=== PATIENT | female | born 1995 | race Caucasian/White ===

== ENCOUNTER 2018-06-27 09:59 | Day surgery (SDC) | payer BC, OTHER ==
[2018-06-25 16:57] VITALS: Ht 170.2 cm; Wt 77.5 kg
[~2018-06-27] VITALS: Ht 170.2 cm; Wt 77.5 kg
[2018-06-27] VITALS (18 sets, daily range): BP systolic 99–122; BP diastolic 51–70; PULSE 68–102; RESP 14–21
--- NOTE | 2018-06-27 10:53 | PREAC ---
Date/Time of Note Date/Time of Note DATE: 06/27/18 TIME: 10:52 Anesthesia Eval and Record Evaluation Time Pre-Procedure Interview DATE: 06/27/18 TIME: 10:52 Age 22 Sex female NPO: 8 hrs Preoperative diagnosis left thyroid nodule Planned procedure left thyroidectomy Past Medical History Past Medical History: None Surgery & Anesthesia Issues No known issue Meds Anticoagulation: No Beta Carmela within 24 hr: No Reason Beta Carmela not given: Pt. not on B-Carmela Meds reviewed: Yes Allergies Allergies Reviewed: Yes Labs/Studies Labs Reviewed: Reviewed by anesthesiologist test: Negative Pre-procedure Exam Airway: Adequate mouth opening, Adequate thyromental dist Mallampati: Mallampati I Teeth: Normal Lung: Normal Heart: Normal ASA Physical Status ASA physical status: 2 Emergency: None Planned Anesthetic General/MAC: ETT Planned Pain Management Parenteral pain med Pre-operative Attestations Prior to commencing anesthesia and surgery, the patient was re-evaluated, there was verification of: *The patient's identity *The results of appropriate recent lab work and preoperative vital signs *The above evaluation not changing prior to induction *Anesthetic plan, risk benefits, alternative and complications discussed with patient/family; questions answered; patient/family understands, accepts and wishes to proceed. WILDER SEPULVEDA Jun 27, 2018 10:53
--- NOTE | 2018-06-27 10:57 | SIPON ---
Date/Time of Note Date/Time of Note DATE: 06/27/18 TIME: 10:56 Operative Report Preoperative Diagnosis left thyroid nodule Postoperative Diagnosis same Operation/Procedure Performed left hemithyroidectomy Surgeon see signature line instructional support assistant na Anesthesia: general Estimated blood loss: 10 - 50 ml's Transfusion Required none Specimen left thyroid Grafts/Implants none Complications none THU RIVAS MD Jun 27, 2018 10:57
--- NOTE | 2018-06-27 10:58 | HPN ---
Date/Time of Note Date/Time of Note DATE: 06/27/18 TIME: 10:58 Interval H&P Admission Note Pt. seen H&P reviewed: No system changes THU RIVAS MD Jun 27, 2018 10:58
[2018-06-27] MEDS ORDERED: LIDOCAINE 1%/EPI (1:100,000) (MDV) 20 ML ONE (11:05)
[2018-06-27] MEDS ORDERED: PROPOFOL 100 ML ONE (11:17)
[2018-06-27] MEDS ORDERED: DEXAMETHASONE 4 MG/ML 5 ML INJ ONE (11:51)
[2018-06-27] MEDS ORDERED: morphine 10 MG INJ ONE (12:49)
[2018-06-27] MEDS ORDERED: CEFAZOLIN 1 GM INJ ONE (13:50)
[2018-06-27] MEDS ORDERED: ROCURONIUM 50 MG INJ ONE (13:50)
[2018-06-27] MEDS ORDERED: ONDANSETRON 4 MG INJ ONE (13:50)
[2018-06-27] MEDS ORDERED: NEOSTIGMINE 10 MG INJ ONE (13:51)
[2018-06-27] MEDS ORDERED: GLYCOPYRROLATE 0.4 MG INJ ONE (13:51)
--- NOTE | 2018-06-27 14:07 | PAC ---
Date/Time of Note Date/Time of Note DATE: 06/27/18 TIME: 14:07 Post-Anesthesia Notes Post-Anesthesia Note Last documented vital signs Vital Signs Date Temp Pulse Resp B/P (MAP) Pulse Ox O2 O2 Flow FiO2 Time Delivery Rate 06/27/18 98.1 102 18 113/60 100 Room Air 1407 (77) Activity: WNL Respiratory function: WNL Cardiovascular function: WNL Mental status: Baseline Pain reasonably controlled: Yes Hydration appropriate: Yes Nausea/Vomiting absent: Yes WILDER SEPULVEDA Jun 27, 2018 14:07
[2018-06-27] MEDS ORDERED: EPHEDrine SULFATE 50 MG/5 ML SYG IV PRN (14:30)
[2018-06-27] MEDS ORDERED: hydrALAzine 20 MG INJ IV PRN (14:30)
[2018-06-27] MEDS ORDERED: HYDROmorphONE 1 MG/5 ML IV SYRINGE IV PRN ×2 (14:30)
[2018-06-27] MEDS ORDERED: LABETALOL HCL 20MG INJ IV PRN (14:30)
[2018-06-27] MEDS ORDERED: MEPERIDINE 25 MG INJ IV PRN (14:30)
[2018-06-27] MEDS ORDERED: FENTAnyl 50 MCG/ML VIAL IV PRN ×2 (14:30)
[2018-06-27] MEDS ORDERED: ALBUTEROL 0.083% (NEB) 2.5 MG/3 ML AMP HHN PRN (14:30)
[2018-06-27] MEDS ORDERED: KETOROLAC 30 MG INJ IV PRN (14:30)
[2018-06-27] MEDS ORDERED: ONDANSETRON 4 MG INJ IV PRN (14:30)
[2018-06-27] MEDS ORDERED: METOCLOPRAMIDE 10 MG INJ IV PRN (14:30)
[2018-06-27] MEDS ORDERED: DIPHENHYDRAMINE 50 MG INJ IV PRN (14:30)
[2018-06-27] MEDS ORDERED: OXYCODONE/ACETAMINOPHEN (5/325) TAB PO PRN ×2 (14:30)
[2018-06-27] MEDS: FENTAnyl 50 MCG/ML VIAL IV PRN ×2 (15:03→15:12)
[2018-06-27] MEDS: HYDROmorphONE 1 MG/5 ML IV SYRINGE IV PRN ×2 (15:04→15:12)
--- NOTE | 2018-06-28 02:53 | OPR ---
DATE OF OPERATION: 06/27/2018 PREOPERATIVE DIAGNOSES: 1. Left-sided thyroid nodule. 2. Dysphagia. POSTOPERATIVE DIAGNOSES: 1. Left-sided thyroid nodule. 2. Dysphagia. PROCEDURES: Left thyroidectomy and isthmusectomy. SURGEON: Woodrow Gonzalez MD ANESTHESIA: General. COMPLICATIONS: None. ESTIMATED BLOOD LOSS: 30 mL. DESCRIPTION OF PROCEDURE: After informed consent was obtained, the patient was brought to the operat ing room and placed in supine position. General anesthesia was then induced. The wound was marked ou t and injected with 9 mL of 1% lidocaine with 1:100,000 epinephrine. The patient was prepped and evgeny ped in sterile fashion. After sufficient period of time elapsed, an incision was taken down through the platysma. Superior and inferior flaps were created. These were fixed using multiple silk suture s. The midline was identified and divided in the midline. Straps were reflected laterally on the le ft easily identifying the nodule. Dissection was undertaken in the nodule, some bloody owing to the hypervascular nature of the nodule, but we were able to control these using combination of bipolar an d silk suture as it worked inferiorly and blackfeet around superiorly. Medially, I was able to identify trachea and divide the thyroid. I was then able to work superior medially dissecting off the tissue s of the thyroid. I was able to use bipolar as well as clamped and cut the superior vessels. This a llowed me to rotate the nodule inferiorly. I was able to find the superior parathyroid and dissect i t off of the gland. At this point, I was able to deliver the large gland measuring at least 10 cm ou t of the wound and doing this, I was easily able to identify the inferior parathyroid which was able to dissect free the gland just below this. I can find the nerve, which when I dissected superiorly u p to where it entered into the larynx. This allowed me to safely remove the lobe and the nodule. I did leave a small cuff of tissue anterior medial to the insertion of the nerve. At this point, there has some oozing. FloSeal was used. After this, there was no significant oozing whatsoever. The wo und was then closed using multiple midline chromic sutures to bring together the strap muscles. The platysma was opposed using multiple simple chromic sutures. Fast absorbing plain gut suture was used to oppose the skin edges. Mastisol and Steri-Strips were applied. The patient was then awakened an d transferred to recovery room in stable condition. Dictated By: WOODROW MITCHELL/RADHA Conf#: [id number] DID#: [id number]
== END 2018-06-27 16:05 | disposition home or self-care (01) ==
LOC: SDS 09:59
PROVIDERS: ATTEND Otolaryngology
DX: C73 Malignant neoplasm of thyroid gland (principal); R13.10 Dysphagia, unspecified
CPT/HCPCS: 60210; 88307; J0690; J1100; J1170; J1885; J2270; J2405; J2710; J3010; Z7512; Z7610

== ENCOUNTER 2018-07-25 07:11 | Day surgery (SDC) | payer OTHER ==
[~2018-07-25] VITALS: Ht 172.7 cm; Wt 87.2 kg
[2018-07-25] VITALS (12 sets, daily range): BP systolic 97–124; BP diastolic 53–70; PULSE 97–114; RESP 14–20; Ht 172.7 cm; Wt 87.2 kg
[~2018-07-25 07:11] MED LIST: SUCCINYLCHOLINE CHLORIDE 100 MG/5 ML SYG IV ONE
--- NOTE | 2018-07-25 09:00 | PREAC ---
Date/Time of Note Date/Time of Note DATE: 07/25/18 TIME: 08:59 Anesthesia Eval and Record Evaluation Time Pre-Procedure Interview DATE: 07/25/18 TIME: 08:59 Age 22 Sex female NPO: 8 hrs Preoperative diagnosis right thyroid nodule Planned procedure right thyroidectomy Past Medical History Past Medical History: None Surgery & Anesthesia Issues No known issue Meds Anticoagulation: No Beta Carmela within 24 hr: No Reason Beta Carmela not given: Pt. not on B-Carmela No Active Prescriptions or Reported Meds Meds reviewed: Yes Allergies Coded Allergies: No Known Allergy (Unverified , 07/25/18) Allergies Reviewed: Yes Labs/Studies Labs Reviewed: Reviewed by anesthesiologist test: Negative Pre-procedure Exam Last vitals Vital Signs Date Temp Pulse Resp B/P (MAP) Pulse Ox O2 O2 Flow FiO2 Time Delivery Rate 07/25/18 98.2 99 16 97/56 (70) 98 08:29 Airway: Adequate mouth opening, Adequate thyromental dist Mallampati: Mallampati II Teeth: Normal Lung: Normal Heart: Normal ASA Physical Status ASA physical status: 2 Emergency: None Planned Anesthetic General/MAC: ETT Planned Pain Management Parenteral pain med, Local by surgeon Pre-operative Attestations Prior to commencing anesthesia and surgery, the patient was re-evaluated, there was verification of: *The patient's identity *The results of appropriate recent lab work and preoperative vital signs *The above evaluation not changing prior to induction *Anesthetic plan, risk benefits, alternative and complications discussed with patient/family; questions answered; patient/family understands, accepts and wishes to proceed. CHIP DRAKE CRNA Jul 25, 2018 09:00
--- NOTE | 2018-07-25 09:05 | HPN ---
Date/Time of Note Date/Time of Note DATE: 07/25/18 TIME: 09:05 Interval H&P Admission Note Pt. seen H&P reviewed: No system changes THU RIVAS MD Jul 25, 2018 09:05
--- NOTE | 2018-07-25 09:06 | SIPON ---
Date/Time of Note Date/Time of Note DATE: 07/25/18 TIME: 09:05 Operative Report Preoperative Diagnosis thyroid carcinoma Postoperative Diagnosis same Operation/Procedure Performed completion thyroidectomy Surgeon see signature line certified pathology assistant na Anesthesia: general Estimated blood loss: 10 - 50 ml's Transfusion Required none Specimen right thyroid lobe Grafts/Implants none Complications none THU RIVAS MD Jul 25, 2018 09:05
[2018-07-25] MEDS ORDERED: LIDOCAINE 1%/EPI (1:100,000) (MDV) 20 ML ONE (09:20)
[2018-07-25] MEDS ORDERED: CEFAZOLIN 1 GM INJ ONE (09:23)
[2018-07-25] MEDS ORDERED: GLYCOPYRROLATE 0.4 MG INJ ONE (09:25)
[2018-07-25] MEDS ORDERED: PHENYLephrine (100 MCG/ML) 10ML SYG ONE (09:27)
[2018-07-25] MEDS ORDERED: FAMOTIDINE 20 MG INJ ONE (09:36)
[2018-07-25] MEDS ORDERED: DEXAMETHASONE 4 MG/ML 5 ML INJ ONE (09:36)
[2018-07-25] MEDS ORDERED: ONDANSETRON 4 MG INJ ONE (09:36)
[2018-07-25] MEDS ORDERED: EPHEDrine 25 MG/5 ML SYG ONE (09:43)
[2018-07-25] MEDS ORDERED: LIDOCAINE 2% (SDV) 5 ML INJ ONE (09:46)
[2018-07-25] MEDS ORDERED: PROPOFOL 20 ML ONE ×2 (09:46→10:53)
[2018-07-25] MEDS ORDERED: FENTAnyl 50 MCG/ML VIAL IV PRN (11:30)
[2018-07-25] MEDS ORDERED: OXYCODONE/ACETAMINOPHEN (5/325) TAB PO PRN (11:30)
[2018-07-25] MEDS ORDERED: MEPERIDINE 25 MG INJ IV PRN (11:30)
[2018-07-25] MEDS ORDERED: ONDANSETRON 4 MG INJ IV PRN (11:30)
--- NOTE | 2018-07-25 11:33 | PAC ---
Date/Time of Note Date/Time of Note DATE: 07/25/18 TIME: 11:32 Post-Anesthesia Notes Post-Anesthesia Note Last documented vital signs Vital Signs Date Temp Pulse Resp B/P (MAP) Pulse Ox O2 O2 Flow FiO2 Time Delivery Rate 07/25/18 98.2 99 16 97/56 (70) 98 08:29 Activity: WNL Respiratory function: WNL Cardiovascular function: WNL Mental status: Baseline Pain reasonably controlled: Yes Hydration appropriate: Yes Nausea/Vomiting absent: Yes Comments BP 114/56 Sp02 100% HR 111 RR 12 T 98F CHIP DRAKE CEMENTER MACHINE JOINER Jul 25, 2018 11:33
[2018-07-25] MEDS ORDERED: HYDROmorphONE 1 MG/5 ML IV SYRINGE IV PRN ×4 (12:00)
--- NOTE | 2018-07-25 21:01 | OPR ---
DATE OF OPERATION: 07/25/2018 PREOPERATIVE DIAGNOSIS: Papillary thyroid carcinoma. POSTOPERATIVE DIAGNOSIS: Papillary thyroid carcinoma. PROCEDURE PERFORMED: Completion thyroidectomy. ANESTHESIA: General. COMPLICATIONS: None. Estimated LOSS: Minimal. PROCEDURE: After informed consent was obtained, the patient was brought to operating room and placed in supine position. General anesthesia was then induced using a nerve monitoring endotracheal tube. The incision was planned, marked out and injected with 1% lidocaine with 1:100,000 epinephrine, rodrigo roximately 9 mL were used. After sufficient period of time elapsed, the patient was prepped and drap ed in sterile fashion. A standard incision was made in the lower neck, taken down through the platys ma. This was done circumferentially around the previous scar. The entire scar was then excised. Elizabeth perior and inferior flaps were created and fixed using multiple chromic sutures. Midline was identif ied and straps on the right were reflected laterally. We were able to find the thyroid and worked in a plane in the area superficial to the thyroid. We were able to then work circumferentially around the thyroid. Inferiorly, we were able to find inferior parathyroid gland and it was dissected free o f the gland superiorly. We were able to dissect out the superior pole, taking care to spare nerve, w hich was easily found working inferiorly from this point. I was able to identify where the nerve ins erted into the trachea and was then able to start dissecting the gland from a superior to inferior fa shion from lateral to medial. I identified the parathyroid gland too that was left in situ. I was a ble to remove the entire gland. There was minimal oozing but there was some oozing right around wher e the nerve was entering the trachea, so decision was made to put some FloSeal there. A Valsalva was done, no bleeding was seen. We will positively identify the nerve using the probe. At this point, the wound was copiously irrigated. The wound was closed using multiple simple chromic sutures opposi ng the strap muscles, multiple chromic sutures opposing the platysma. The skin was closed using a elizabeth bcuticular Prolene. Mastisol and Steri-Strips were applied. The patient then awakened and transferr ed to recovery room in stable condition. Dictated By: THU MITCHELL/RADHA Conf#: [id number] DID#: [id number] CC: THU RIVAS MD;*[facility]*
== END 2018-07-25 13:25 | disposition home or self-care (01) ==
LOC: SDS 07:11
PROVIDERS: ATTEND Otolaryngology
DX: E06.3 Autoimmune thyroiditis (principal); Z85.850 Personal history of malignant neoplasm of thyroid
CPT/HCPCS: 60240; 82310; 82330; 84703; 88307; J0690; J1100; J2370; J2405; J3010; Z7512; Z7610